=== PATIENT | male | born 1985 | race Hispanic/Latino ===

== ENCOUNTER 2018-05-12 13:20 | Observation (INO) | payer BC, OTHER ==
[2018-05-12] MEDS ORDERED: Nitroglycerin 0.4 MG TAB (25 Tab Bottle) ONE (13:31)
[2018-05-12 13:48] LABS: #Basophils 0.1 thou/uL (0.0-0.2); #Eosinphils 0.2 thou/uL (0.0-0.7); #Monocytes 0.9 thou/uL (0.11-0.59); #Neutrophils 5.6 thou/uL (1.40-6.50); %Eosinophils 1.6 % (0.0-10.0); %Lymphocytes 30.4 % (21.0-51.0); %Monocytes 9.5 % (0.0-10.0); %Neutrophils 57.5 % (42.0-75.0); Hemoglobin 17.7 g/dL (14.0-18.0); Mean Corpuscular HGB CONC 34.7 g/dL (32.0-36.0); Mean Corpuscular Hemoglobin 30.1 pg (27.0-31.0); Mean Corpuscular Volume 86.7 fl (80.0-94.0); Mean Platelet Volume 8.1 fL (7.4-10.4); Platelet Count 214 thou/uL (130-400); RBC Distribution Width 11.5 % (11.5-14.5); Red Blood Cell (RBC) Count 5.88 mill/uL (4.70-6.10); White Blood Cell (WBC) Count 9.7 thou/uL (4.8-10.8)
[2018-05-12] MEDS ORDERED: Acetaminophen 500 MG TAB ONE (13:56)
--- NOTE | 2018-05-12 13:56 | RAD ---
SINGLE VIEW CHEST: Date: 05/12/18 COMPARISON: 01/14/14. HISTORY: Chest pain. FINDINGS: Single view of the chest shows a normal sized cardiomediastinal silhouette. There is no evidence of c onsolidation, mass, or pleural effusion. The bones are unremarkable. IMPRESSION: No evidence of acute cardiopulmonary disease. POS: [facility]
[2018-05-12 14:06] LABS: ALT (SGPT) 81 U/L (8-55); AST (SGOT) 91 U/L (5-34); Albumin 4.5 g/dL (3.5-5.0); Alkaline Phosphatase 72 U/L (40-150); Anion Gap 14 mmol/L (10-20); BUN (Urea Nitrogen) 11 mg/dL (8.9-20.6); Bilirubin, Total 0.8 mg/dL (0.2-1.2); CK (CPK) 296 U/L (30-200); Calc. Creatinine Clearance 0 mL/min (70-130); Calcium 9.7 mg/dL (7.8-10.44); Carbon Dioxide 25 mmol/L (22-29); Chloride 108 mmol/L (98-107); Estimated GFR-MDRD Greater than 90; Globulin 3.1 g/dL (2.4-3.5); Glucose 94 mg/dL (70-105); Protein, Total 7.6 g/dL (6.0-8.3); Sodium 143 mmol/L (136-145)
[2018-05-12 14:07] LABS: Troponin I Less than 0.010 ng/mL (< 0.028)
[2018-05-12] MEDS ORDERED: Nitroglycerin 2% Ointment 1 INCH/1 GM Packet ONE (14:12)
[2018-05-12 16:33] VITALS: BMI 36.3
[2018-05-12] MEDS ORDERED: Nitroglycerin 0.4 MG TAB (25 Tab Bottle) PO PRN (16:54)
--- NOTE | 2018-05-12 16:54 | PDOC.FPRHP ---
- History of Present Illness Chief Complaint: Chest pain History of Present Illness: 33 yo male with pmhx of an [place] (STEMI) in 2012 s/p cath with stent placement, HTN , and HLD, presents with chest pain that started today at 1245 after he ate a pizza slice. He described it as substernal, pressure with radiation to his back , shortness of breath and diaphoresis. Denies n/v/d/c/fever/chills. States that he was seen by Dr. Joy then Dr. Alexandra at [facility]. He had a stress and echo done in September 2017 at [facility] that was "normal." They told him at that time that he was having a panic attack. He also said that 1.5 years ago, he had a cath and the doctor told him a vessel was about 40% clogged. He went to the [email or web address] ER today when he got his chest pain and they gave him nitro (2 pills) and nitro paste with aspirin 324mg, which resolved his chest pain he thinks after about 30 minutes. When we evaluated him, he did not have any chest pain. He still had the nitro patch on. He endorsed a family hx of diabetes. 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 ED Course: 2 nitro tabs, nitro patch, tylenol, and aspirin 325mg - Allergies/Adverse Reactions Allergies Allergy/AdvReac Type Severity Reaction Status Date / Time Penicillins Allergy Severe Anaphylaxis Verified 08/30/13 00:30 - Home Medications Medication Instructions Recorded Confirmed Type Aspirin 81 mg PO DAILY 08/25/13 05/12/18 History Atorvastatin Calcium [Lipitor] 10 mg PO HS 08/25/13 05/12/18 History Labetalol [Normodyne] 100 mg PO DAILY 05/12/18 05/12/18 History Labetalol [Normodyne] 200 mg PO HS 05/12/18 05/12/18 History Lisinopril [Lisinopril] 15 mg PO DAILY 05/12/18 05/12/18 History Spironolactone [Spironolactone] 25 mg PO BID 05/12/18 05/12/18 History Ubidecarenone [Coenzyme Q-10] 100 mg PO BID 05/12/18 05/12/18 History - History PMHx: PSHx: FHx: Social: - Review of Systems General: reports: other (diaphoresis). denies: fever/chills, weight/appetite/ sleep changes ENT: denies: nasal congestion, rhinorrhea Respiratory: reports: shortness of breath. denies: cough, congestion, exercise intolerance Cardiovascular: reports: chest pain. denies: palpitation, edema, paroxysmal nocturnal dyspnea Gastrointestinal: denies: nausea, vomiting, diarrhea Genitourinary: denies: incontinence, dysuria Skin: denies: rashes, lesions, jaundice Musculoskeletal: denies: pain, tenderness, stiffness Neurological: denies: numbness, syncope, seizure Psychological: reports: anxiety. denies: depression - Vital signs BP: 140/85 HR: 88 RR: 18 Tmax: 98.6 Pox: 97%% on RA Wt: 99kg - Physical Exam Constitutional: NAD, awake, alert and oriented HEENT: normocephalic and atraumatic, PERRLA Neck: supple, no LAD, no thyromegaly Heart: RRR, normal S1/S2, no murmurs/rubs/gallops, no edema Lungs: CTAB, no respiratory distress Abdomen: soft, non-tender, bowel sounds present Musculoskeletal: normal structure, normal tone Neurological: no focal deficit, CN II-XII intact Skin: no rash/lesions, good turgor Heme/Lymphatic: no unusual bruising or bleeding, no purpura Psychiatric: normal mood and affect FMR H&P: Results - Labs Result Diagrams: 05/12/18 13:42 05/12/18 13:42 Lab results: WBC 9.7 thou/uL (4.8-10.8) 05/12/18 13:42 Hgb 17.7 g/dL (14.0-18.0) 05/12/18 13:42 Hct 51.0 % (42.0-52.0) 05/12/18 13:42 MCV 86.7 fl (80.0-94.0) 05/12/18 13:42 Plt Count 214 thou/uL (130-400) 05/12/18 13:42 Neutrophils % 57.5 % (42.0-75.0) 05/12/18 13:42 Sodium 143 mmol/L (136-145) 05/12/18 13:42 Potassium 4.0 mmol/L (3.5-5.1) 05/12/18 13:42 Chloride 108 mmol/L (98-107) H 05/12/18 13:42 Carbon Dioxide 25 mmol/L (22-29) 05/12/18 13:42 BUN 11 mg/dL (8.9-20.6) 05/12/18 13:42 Creatinine 0.88 mg/dL (0.7-1.3) 05/12/18 13:42 Glucose 94 mg/dL (70-105) 05/12/18 13:42 Calcium 9.7 mg/dL (7.8-10.44) 05/12/18 13:42 Total Bilirubin 0.8 mg/dL (0.2-1.2) 05/12/18 13:42 AST 91 U/L (5-34) H 05/12/18 13:42 ALT 81 U/L (8-55) H 05/12/18 13:42 Alkaline Phosphatase 72 U/L (40-150) 05/12/18 13:42 Creatine Kinase 296 U/L (30-200) H 05/12/18 13:42 CK-MB (CK-2) 6.0 ng/mL (0-6.6) 05/12/18 13:42 Serum Total Protein 7.6 g/dL (6.0-8.3) 05/12/18 13:42 Albumin 4.5 g/dL (3.5-5.0) 05/12/18 13:42 - EKG Interpretation EKG: no acute ischemic changes NSR - Radiology Interpretation Chest x-ray Status: image reviewed by me, report reviewed by me Additional comment: no acute cardiopulmonary process FMR H&P: A/P - Problem List (1) Chest pain Current Visit: Yes Status: Acute Code(s): R07.9 - CHEST PAIN, UNSPECIFIED (2) HTN (hypertension) Current Visit: Yes Status: Acute Code(s): I10 - ESSENTIAL (PRIMARY) HYPERTENSION (3) HLD (hyperlipidemia) Current Visit: Yes Status: Acute Code(s): E78.5 - HYPERLIPIDEMIA, UNSPECIFIED (4) CAD (coronary artery disease) Current Visit: Yes Status: Acute Code(s): I25.10 - ATHSCL HEART DISEASE OF [place] CORONARY ARTERY W/O ANG PCTRS (5) History of intravascular stent placement Current Visit: Yes Status: Acute Code(s): Z95.828 - PRESENCE OF OTHER VASCULAR IMPLANTS AND GRAFTS (6) Family history of diabetes mellitus Current Visit: Yes Status: Acute Code(s): Z83.3 - FAMILY HISTORY OF DIABETES MELLITUS - Plan 33 yo man with pmhx of [place] s/p cath with stent placement, presents with chest pain, admitted for typical chest pain. Typical Chest Pain- -ddx: ACS, esophageal spasm, anxiety/panic attack -admit to inpatient telemetry -trend troponins and ck-mb -serial EKGs -monitor on telemetry -Hrt score of 4 but prior stress and echo in September 2017. Will request records from [facility]. -consider cards consult in the am -continue asa, statin, devang, and bb tonight, hold bb in am in case of stress test -NPO at midnight incase we decide to order a stress or if cards wants to cath the patient. -Hold BB in the am Transaminitis -ordered right upper quadrant us -no right upper quadrant HTN- -Restart lisinopril and labetalol HLD- -Restart atorvastatin 40mg daily GERD -restart ppi daily DVT prophylaxis- -lovenox GI prophylaxis- -ppi CODE STATUS: Full code FMR H&P: Upper Level - Pertinent history Patient seen 05/12/18 at 1630 33 year old male with PMH STEMI presents for retrosternal chest pain starting today at approximately 1300 after eating lunch. He describes the pain as pressure-like and radiating to his back. He was not sure if it felt like this when he had his STEMI. Pain was associated with diaphoresis and dyspnea and improved with nitro. No worsening with movement. He has not had prior episodes like this or chest pain prior toda. Denies recent exertional dyspnea, orthopnea, leg swelling, jaw pain, nausea. Also denies fever, chills, rhinorrhea, nasal congestion, sore throat, wheezing, cough, abdominal pain, vomiting, diarrhea, rash, jaundice, itching, anxiety, and depression. ED - Seen at [facility] ER by Dr. Rosario. Was treated with sublingual nitro x2, Nitro-Bid, 324 mg aspirin, and Tylenol. Initial cardiac enzymes were negative. - Pertinent findings Temp 98.6 RR 18 HR 88 BP 140/85 O2 sats 97% on RA wt 98.9 kg Physical Exam: General: NAD. Obese. AAOx4 Eyes: EOMI, PERRL, nonicteric ENT: MMM. Oropharynx clear CV: RRR. No murmurs, rubs, or gallops. Pulses full and equal in all 4 extremities. Pain not reproducible with palpation Resp: CTA-B. No wheezing, rales, or rhonchi. Abd: NT, ND, no guarding or rebound Ext: No edema. Equal movements bilaterally Skin: No rash or ulcer. No palpable Neuro: CN II-XII. Psych: Mood and affect appropriate. Judgment and insight intact CXR - No evidence of acute cardiopulmonary processes EKG - No ischemic changes - Plan Date/Time: 05/12/181653 I, Benjie Patino DO, have evaluated this patient and agree with findings/plan as outlined by internal consultant resident. Pertinent changes/additions are listed here. A/P: 33 yo male presents with: 1) Typical Chest Pain - Admit to telemetry. Continue aspirin plus home statin, DEVANG, ARB. Trend cardiac enzymes and EKG. Patient has a history of NJ. HEART score is 4. Check mag. Consider cardiology consult in the morning. Recently had echo at [facility]. Will request records. 2) History of STEMI - Occurred after a surgery in 2012. Plan as listed above. Consider cardiology consult in the morning 3) HTN - Home meds 4) HLD - Home meds 5) GERD - Protonix 6) Headache - Occurred after nitro. Likely side effect of nitro 7) Diet - Heart healthy. NPO at midnight
[2018-05-12 17:13] LABS: Troponin I Less than 0.010 ng/mL (< 0.028)
[2018-05-12 17:25] LABS: Cardiac Risk 4.6 (Less than 4.5)
[2018-05-12 17:46] LABS: Magnesium 2.2 mg/dL (1.6-2.6)
[2018-05-12 19:47] LABS: Hemoglobin A1c 5.1 % (4.0-6.0)
[2018-05-12 20:05] LABS: CKMB 4.2 ng/mL (0-6.6); Troponin I Less than 0.010 ng/mL (< 0.028)
[2018-05-12] MEDS: Spironolactone 25 MG TAB PO SCH (20:24)
[2018-05-12] MEDS: Ubidecarenone 50 MG CAP PO SCH (20:24)
[2018-05-12] MEDS ORDERED: Atorvastatin Calcium 40 MG TAB PO SCH (21:00)
[2018-05-12] MEDS ORDERED: Labetalol 100 MG TAB PO SCH (21:00)
[2018-05-12] MEDS: Nitroglycerin 2% Ointment 1 INCH/1 GM Packet TOP SCH (22:45)
[2018-05-13] MEDS ORDERED: Acetaminophen 325 MG TAB PO PRN (02:03)
[2018-05-13] MEDS: Nitroglycerin 2% Ointment 1 INCH/1 GM Packet TOP SCH (05:29)
[2018-05-13 05:48] LABS: ALT (SGPT) 66 U/L (8-55); AST (SGOT) 41 U/L (5-34); Albumin 4.1 g/dL (3.5-5.0); Alkaline Phosphatase 67 U/L (40-150); Anion Gap 11 mmol/L (10-20); BUN (Urea Nitrogen) 14 mg/dL (8.9-20.6); Band 4 % (5-11); Bilirubin, Total 0.7 mg/dL (0.2-1.2); Calc. Creatinine Clearance 180 mL/min (70-130); Calcium 9.1 mg/dL (7.8-10.44); Carbon Dioxide 24 mmol/L (22-29); Chloride 108 mmol/L (98-107); Eosinophils 2 % (0-10); Estimated GFR-MDRD Greater than 90; Globulin 2.5 g/dL (2.4-3.5); Glucose 98 mg/dL (70-105); Hemoglobin 16.4 g/dL (14.0-18.0); Lymphocytes 21 % (21-51); MDiff Complete? YES; Mean Corpuscular HGB CONC 34.5 g/dL (32.0-36.0); Mean Corpuscular Hemoglobin 30.7 pg (27.0-31.0); Mean Platelet Volume 7.5 fL (7.4-10.4); Monocytes 4 % (0-10); Neutrophil 69 % (42-75); PLT Morphology Comment Appears Adequate; Platelet Count 177 thou/uL (130-400); Protein, Total 6.6 g/dL (6.0-8.3); RBC Distribution Width 11.9 % (11.5-14.5); Red Blood Cell (RBC) Count 5.32 mill/uL (4.70-6.10); Sodium 139 mmol/L (136-145); White Blood Cell (WBC) Count 10.1 thou/uL (4.8-10.8)
[2018-05-13 05:55] LABS: Troponin I Less than 0.010 ng/mL (< 0.028)
[2018-05-13] MEDS: Spironolactone 25 MG TAB PO SCH (08:12)
[2018-05-13] MEDS: Ubidecarenone 50 MG CAP PO SCH (08:12)
--- NOTE | 2018-05-13 08:20 | ULT ---
SONOGRAM RIGHT UPPER QUADRANT: HISTORY: Right upper quadrant pain. FINDINGS: Echogenic stone is apparent at the gallbladder lumen. Nonshadowing sludge is also visible. Gallblad erin is somewhat distended at 9 cm. The patient was reportedly not tender over the gallbladder fossa at the time of the exam. No pericholecystic fluid or gallbladder wall thickening. The common duct i s 0.5 cm. Liver unremarkable without focal mass or intrahepatic biliary dilatation. No free fluid. IMPRESSION: Cholelithiasis. No evidence of acute biliary obstruction. POS: [facility]
--- NOTE | 2018-05-13 08:48 | PDOC.FM ---
- Subjective Subjective: No chest pain this morning. Denies sx. Sitting up in the chair. - Objective MAR Reviewed: Yes Vital Signs & Weight: Vital Signs (12 hours) Temp Pulse Resp BP BP BP Pulse Ox 05/13/18 08:11 141/85 H 05/13/18 08:00 99.0 F 76 18 132/76 99 05/13/18 04:00 97.9 F 87 14 128/73 95 05/13/18 00:00 98.2 F 67 19 118/67 99 Weight Weight 98.928 kg Result Diagrams: 05/13/18 04:34 05/13/18 04:34 Phys Exam - Physical Examination Constitutional: NAD HEENT: PERRLA, moist MMs Respiratory: no wheezing, no rales, no rhonchi, clear to auscultation bilateral Cardiovascular: RRR, no significant murmur Gastrointestinal: soft, non-tender, no distention Musculoskeletal: no edema, pulses present Neurological: non-focal, normal sensation Psychiatric: normal affect, A&O x 3 Deviation from normal: neurofibromas pea size on back Dx/Plan (1) Chest pain Code(s): R07.9 - CHEST PAIN, UNSPECIFIED Status: Acute (2) HTN (hypertension) Code(s): I10 - ESSENTIAL (PRIMARY) HYPERTENSION Status: Acute (3) HLD (hyperlipidemia) Code(s): E78.5 - HYPERLIPIDEMIA, UNSPECIFIED Status: Acute (4) CAD (coronary artery disease) Code(s): I25.10 - ATHSCL HEART DISEASE OF [place] CORONARY ARTERY W/O ANG PCTRS Status: Acute (5) History of intravascular stent placement Code(s): Z95.828 - PRESENCE OF OTHER VASCULAR IMPLANTS AND GRAFTS Status: Acute (6) Family history of diabetes mellitus Code(s): Z83.3 - FAMILY HISTORY OF DIABETES MELLITUS Status: Acute - Plan Plan: 33 yo man with pmhx of [place] s/p cath with stent placement, presents with chest pain, admitted for typical chest pain. Typical Chest Pain- -ddx: ACS, esophageal spasm, anxiety/panic attack -Hrt score of 4 -awaiting records from [facility] -trops negative overnight and no ekg changes -will consult cardiology since pt has a hx of [place] and typical chest pain to further assess if we should stress Transaminitis -ordered right upper quadrant us -no right upper quadrant HTN- -Restart lisinopril and labetalol HLD- -Restart atorvastatin 40mg daily GERD -restart ppi daily DVT prophylaxis- -lovenox GI prophylaxis- -ppi CODE STATUS: Full code
[2018-05-13] MEDS ORDERED: Aspirin 325 MG TAB PO SCH (09:00)
[2018-05-13] MEDS ORDERED: Lisinopril 10 MG TAB PO SCH (09:00)
[2018-05-13] MEDS ORDERED: Clopidogrel Bisulfate 75 MG TAB PO SCH (09:00)
[2018-05-13] MEDS ORDERED: Enoxaparin Sodium 40 MG/0.4 ML SYRINGE SC SCH (09:00)
--- NOTE | 2018-05-13 09:56 | HP ---
I have examined the patient. I have discussed the case with Dr. Benjie Patino and agreed with his assessment and plan. Mr. Rios is a pleasant 33-year-old male with known coronary artery disease status post splinting in 2012. He developed some epigastric and retrosternal abdominal or chest discomfort after eating a pizza for lunch on 05/12/2018. He presented to a local [facility] ER in [facility]. Although his initial EKG and troponins were negative, he was admitted for further observatio n and evaluation. PHYSICAL EXAMINATION: GENERAL: He is a slightly obese male in no distress. He is awake and alert. He is current ly not having any chest or abdominal discomfort. VITAL SIGNS: His blood pressure is 128/73, his respiration is 14, oxygen saturation on room air is 9 5%. He is afebrile. He has pulse rate of 87 that is regular. HEAD: Normocephalic. NECK: Supple, no JVD. CARDIAC: PMI is in the fifth intercostal space midclavicular line. No gallop or murmur noted. LUNGS: Clear. No rales, rhonchi or wheezes. ABDOMEN: He does have slight epigastric discomfort. No right upper quadrant discomfort. No guardin g, rebound or rigidity. EXTREMITIES: No edema. NEUROLOGIC: No focal deficits. LABORATORY DATA AND IMAGING DATA: CBC: White count is 9,700, hemoglobin 17.7, hematocrit 51 with an MCV of 86. Chemistries: Sodium is 139, potassium is 4, chloride 108, bicarbonate is 24, BUN 14, cr eatinine 0.8. He does have elevated liver enzymes with an AST of 41 and ALT of 66. Troponins x2 are less than 0.010. His EKG does not show any acute ischemic changes. ASSESSMENT: Chest and abdominal discomfort in a patient with known coronary artery disease. PLAN: Admit, trend troponins, consult Cardiology, consider other etiologies of his discomfort.
--- NOTE | 2018-05-13 11:30 | ADD-PRG ---
DATE OF SERVICE: 05/13/2018 ADDENDUM This is an addendum to the note of Dr. Tamia Murphy. Mr. Rios is resting quietly in bed in no distress. He has not had any further episodes of signi ficant epigastric or chest pain. He has been scheduled for a stress Myoview at the suggestion of Car diology. We will proceed based on the results. He was also found to have gallstone, although no sig ns and symptoms of cholecystitis. He has; however, in the past had some epigastric discomfort which could be related to gallbladder disease or to his GERD. We will proceed with an outpatient workup up on discharge to include at least a HIDA scan and possible surgical consultation.
[2018-05-13 15:21] LABS: Syphilis Antibody Nonreactive (Nonreactive); Syphilis Antibody Index 0.06 S/CO (<1.00 Non-Reactive)
[2018-05-13] MEDS ORDERED: ADENOSINE 60 MG/20 ML VIAL ONE (15:29)
--- NOTE | 2018-05-13 15:33 | NM ---
CARDIAC SPECT: CLINICAL HISTORY: 33-year-old male with chest pain, coronary artery disease, stent placement, hypertension, an d dyslipidemia. TECHNIQUE: A myocardial perfusion scan was performed using the single isotope one day protocol with technetium-9 9m sestamibi. 9 mCi were injected intravenously for the rest exam followed by 28 mCi for the stress s tudy. Pharmacologic stress with Adenosine was monitored and interpreted by Dr. More. FINDINGS: Homogeneous tracer distribution is seen in the myocardial segments on stress and rest images without fixed or reversible defects. GATED SPECT LVEF: 74%. WALL MOTION EXAM: Normal. IMPRESSION: Normal myocardial perfusion scan. POS: [facility]
[2018-05-13 15:36] LABS: HBCM Index 0.07 S/CO (0-0.79); HBSAg Index 0.15 S/CO (0-0.99); HIV (1/2) Antibody/Antigen Non-Reactive (NonReactive); HIV 1/2 INDEX 0.11 S/CO (<1.00); Hep A IgM AB Non-Reactive (NonReactive); Hep A IgM S/CO 0.07 S/CO (0-0.79); Hep B Surf AB Non-Reactive (NonReactive); Hep B Surf Ag Non-Reactive S/CO (NonReactive); Hep C IgG Ab Non-Reactive (NonReactive); Hep C Index 0.06 S/CO (0-0.79); Hepatitis B Core IGM Abs Non-Reactive (NonReactive)
[2018-05-13 17:22] VITALS: BP 136/70; TEMP 98.8
--- NOTE | 2018-05-16 08:57 | DIS-2 ---
DATE OF ADMISSION: 05/12/2018 DATE OF DISCHARGE: 05/13/2018. RESIDENT: Muna Ward MD ATTENDING PHYSICIAN: Ari Pizano MD PRIMARY DIAGNOSES: 1. Typical chest pain. 2. Transaminitis. 3. Hypertension. 4. Hyperlipidemia. 5. Gastroesophageal reflux disease. DISCHARGE MEDICATIONS: 1. Pantoprazole 40 mg oral twice daily. 2. Aspirin 81 mg oral daily. 3. Atorvastatin 10 mg oral at bedtime. 4. Lisinopril 50 mg oral daily. 5. Labetalol 10 mg oral daily. 6. Labetalol 20 mg oral at bedtime. 7. Spironolactone 25 mg oral twice daily. 8. Coenzyme Q10 of 100 mg oral twice daily. IMAGIN. Chest x-ray. Impression: No evidence of acute cardiopulmonary disease. 2. Nuclear stress test, normal myocardial perfusion scan, EF 74% without fixed or reversible defects. 3. Abdominal ultrasound, cholelithiasis, no evidence of acute biliary obstruction. CONSULTS: None. HISTORY OF PRESENT ILLNESS AND HOSPITAL COURSE: This is a 33-year-old male with past medical history of an [place] (STEMI in 2012), status post catheterization with stent placement, hypertension, and hyperlipidemia who presents with chest pain that started today at 12:45 after he ate a pizza. He described it as substernal pressure with radiation to his back, shortness of breath and diaphoresis. Denied nausea, vomiting, diarrhea, constipation, fevers or chills. States that he was seen by Dr. Maharaj and Dr. Alexandra at [facility]. He had a stress test and echo done in 09/2017 at [facility] that was (normal). They told him at that time that he was having a panic attack. He also said that 1-1/2 years ago, he had a catheterization that the doctor told him he had a vessel that was about 40% clogged. He went to [facility] ER today when he got his chest pain and they gave him 2 nitro pills nitro paste with aspirin 324 mg which resolved his chest pain he thinks after about 30 minutes. When we reevaluated him he did not have any chest pain. He still had the nitropatch on, he endorses a family history of diabetes. 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 In the ER, he was given 2 nitro tabs, nitropatch, Tylenol and aspirin 325 mg. He has a past medical history of hypertension, hyperlipidemia, anemia, CAD status post stent placed in 2012, neurofibromatosis and GERD. He denies smoking, alcohol or drug use. Father has type 2 diabetes. His vitals on admission were within normal limits. Heart exam showed a regular rate and rhythm. Normal S1 and S2. No murmurs, rubs or gallops. No edema. Chest pain , not reproducible to palpation. Lungs were clear to auscultation. No respiratory distress. In regard to his neurologic exam, he was alert and oriented x3. His CBC on admission was within normal limits. His CMP showed hyperchloremia 108. His AST and ALT are mildly elevated at 91 and 81. His alk phos was normal at 72. His CK was elevated at 296, CK-MB was normal at 6.0. His first troponin was less than 0.010, those were trended, which were all negative. A hepatitis panel was ordered which showed hep A was nonreactive, hep B surface antigen was nonreactive as well as B surface antibody, hepatitis C antibody was nonreactive , HIV was nonreactive. Syphilis was nonreactive. A TSH was also ordered and was 1.2, normal. Lipids were ordered as well showed triglycerides of 241, he was admitted for typical chest pain. Differential to include acute coronary syndrome, esophageal spasm, anxiety or panic attack. He was admitted to inpatient telemetry. His troponins were trended as stated above and were negative. CK-MB was normal. His initial EKG showed no acute ischemic changes, normal sinus rhythm. Serial EKGs were performed showing the same thing. He had a heart score of 4, but a prior stress echo in 09/2017. Records were requested from [facility]. We continued his aspirin, statin and DEVANG. His beta-juan was held. He was made n.p.o. at midnight and a stress test was ordered for in the morning. In regard to transaminitis, a right upper quadrant ultrasound was ordered which showed cholelithiasis, but no evidence of obstruction. His liver enzymes were trended, which downtrended. In regard to his hypertension, he was restarted on lisinopril and labetalol. In regard to his hyperlipidemia, he was restarted on atorvastatin 40 daily. In regard to his GERD, he was restarted on his PPI daily. He had a stress test the following day, which showed no signs of reversible ischemia. He was discharged later on that day. DISPOSITION: Stable. Due to his stress test being normal is likely that due to his chronic history of GERD that this pain was relating to his GERD versus an esophageal spasm which also was relieved with nitro. This could also be an anxiety or panic attack as the patient did endorse work related stress. Further workup was recommended in the outpatient setting. DISCHARGE INSTRUCTIONS: LOCATION: Discharged to home. FOLLOWUP: Followup with primary care physician and Cardiology within 1-2 weeks. DIET: Heart healthy. ACTIVITY: As tolerated. JAMSHID
--- NOTE | 2018-05-27 10:04 | STRESS ---
Acquisition Time: 2018-05-13 12:18:49 Total Exercise Time: 00:04:00 Test Indications: CHEST PAIN Medications: Protocol: ADENOSINE Max HR: 120 BPM 64% of Pred: 185 BPM Max BP: 140/072 mmHG Max Work Load: 1.0 METS RESTING ECG: NORMAL SINUS RHYTHM AT 72 BPM WITH NON-SPECIFIC T-WAVE CHANGES SYMPTOMS: CHEST PAIN AND SHORTNESS OF BREATH NORMAL BP RESPONSE ECTOPY: NONE ECG STRESS: NO SIGNIFICANT CHANGES INTERPRETATION: AWAIT NUCLEAR IMAGES FOR DEFINITIVE DIAGNOSIS Confirmed by DAVIS DIAZ ([id number]), editor at large MALINDA PINEDA ([id number]) on 05/27/2018 10:04:35 AM Referred By: MD Tanner HIGH Confirmed By:DAVIS DIAZ
== END 2018-05-13 17:36 | disposition home or self-care (01) ==
LOC: SCSER 13:20 → 2NO 14:57 → INTOOBSV 14:57
PROVIDERS: ADMIT Family Medicine; ATTEND Family Medicine
DX: R07.89 Other chest pain (principal); I10 Essential (primary) hypertension; E78.5 Hyperlipidemia, unspecified; K21.9 Gastro-esophageal reflux disease without esophagitis; I25.10 Atherosclerotic heart disease of native coronary artery without angina pectoris; Z79.82 Long term (current) use of aspirin; Z79.899 Other long term (current) drug therapy; Z83.3 Family history of diabetes mellitus; Z95.828 Presence of other vascular implants and grafts; Z88.0 Allergy status to penicillin
CPT/HCPCS: 36415; 71045; 76705; 78452; 80053; 80061; 82553; 83036; 83735; 84100; 84443; 84484; 85007; 85025; 85027; 86705; 86706; 86709; 86780; 86803; 87340; 87350; 87389; 93005; 93010; 93017; 96372; A9500; G0378; J0153; J1650

== ENCOUNTER 2022-12-08 19:58 | Observation (INO) | payer OTHER ==
[2022-12-08 20:44] LABS: #Basophils 0.1 thou/uL (0.0-0.2); #Eosinphils 0.1 thou/uL (0.0-0.7); #Lymphocytes 2.4 thou/uL (1.20-3.40); #Neutrophils 5.7 thou/uL (1.40-6.50); %Basophils 0.5 % (0.0-1.0); %Eosinophils 1.6 % (0.0-10.0); %Lymphocytes 25.9 % (21.0-51.0); %Monocytes 10.6 % (0.0-10.0); %Neutrophils 61.4 % (42.0-75.0); Hemoglobin 18.3 g/dL (14.0-18.0); Mean Corpuscular HGB CONC 32.3 g/dL (32.0-36.0); Mean Corpuscular Hemoglobin 29.2 pg (27.0-31.0); Mean Corpuscular Volume 90.5 fl (78.0-98.0); Mean Platelet Volume 8.3 fL (7.4-10.4); Platelet Count 194 10x3/uL (130-400); RBC Distribution Width 12.3 % (11.5-14.5); Red Blood Cell (RBC) Count 6.27 mill/uL (4.70-6.10); White Blood Cell (WBC) Count 9.3 10x3/uL (4.8-10.8)
[2022-12-08 20:57] LABS: ALT (SGPT) 36 U/L (8-55); AST (SGOT) 25 U/L (5-34); Albumin 4.6 g/dL (3.5-5.0); Alkaline Phosphatase 76 U/L (40-110); Anion Gap 13 mmol/L (10-20); BUN (Urea Nitrogen) 13 mg/dL (8.9-20.6); Bilirubin, Total 0.4 mg/dL (0.2-1.2); Calc. Creatinine Clearance 0 mL/min (70-130); Calcium 9.7 mg/dL (7.8-10.44); Carbon Dioxide 25 mmol/L (22-29); Chloride 106 mmol/L (98-107); Estimated GFR 97; Globulin 2.9 g/dL (2.4-3.5); Glucose 110 mg/dL (70-105); Potassium 4.5 mmol/L (3.5-5.1); Protein, Total 7.5 g/dL (6.0-8.3); Sodium 139 mmol/L (136-145)
[2022-12-08] MEDS ORDERED: Aspirin Chewable 81 MG TAB ONE (22:18)
[2022-12-09] MEDS ORDERED: Lorazepam 0.5 MG TAB PO SCH (05:00)
[2022-12-09] MEDS ORDERED: Lorazepam 1 MG TAB ONE (05:09)
[2022-12-09 06:22] LABS: #Basophils 0.1 thou/uL (0.0-0.2); #Eosinphils 0.1 thou/uL (0.0-0.7); #Lymphocytes 2.4 thou/uL (1.20-3.40); #Monocytes 1.1 thou/uL (0.11-0.59); #Neutrophils 5.9 thou/uL (1.40-6.50); %Basophils 0.9 % (0.0-1.0); %Eosinophils 1.4 % (0.0-10.0); %Lymphocytes 24.9 % (21.0-51.0); %Monocytes 11.1 % (0.0-10.0); %Neutrophils 61.6 % (42.0-75.0); Hemoglobin 18.3 g/dL (14.0-18.0); Mean Corpuscular HGB CONC 34.1 g/dL (32.0-36.0); Mean Corpuscular Hemoglobin 30.8 pg (27.0-31.0); Mean Corpuscular Volume 90.6 fl (78.0-98.0); Mean Platelet Volume 8.1 fL (7.4-10.4); Platelet Count 166 10x3/uL (130-400); RBC Distribution Width 12.4 % (11.5-14.5); Red Blood Cell (RBC) Count 5.95 mill/uL (4.70-6.10); White Blood Cell (WBC) Count 9.6 10x3/uL (4.8-10.8)
[2022-12-09 06:55] LABS: Anion Gap 10 mmol/L (10-20); BUN (Urea Nitrogen) 11 mg/dL (8.9-20.6); Calc. Creatinine Clearance 0 mL/min (70-130); Calcium 9.6 mg/dL (7.8-10.44); Carbon Dioxide 28 mmol/L (22-29); Chloride 104 mmol/L (98-107); Estimated GFR 95; Glucose 94 mg/dL (70-105); Phosphorus 3.5 mg/dL (2.3-4.7); Potassium 4.4 mmol/L (3.5-5.1); Sodium 138 mmol/L (136-145)
[2022-12-09] MEDS ORDERED: Lisinopril 10 MG TAB ONE (10:09)
[2022-12-09] MEDS ORDERED: Pantoprazole 40 MG VIAL ONE (10:09)
[2022-12-09] MEDS: Lisinopril 10 MG TAB PO SCH (10:14)
[2022-12-09] MEDS: Spironolactone 25 MG TAB PO SCH ×2 (10:19→21:48)
[2022-12-09] MEDS: Pantoprazole 40 MG VIAL IVP SCH ×2 (10:19→21:48)
[2022-12-09] MEDS ORDERED: Labetalol HCl 100 MG TAB ONE (11:04)
[2022-12-09] MEDS: Labetalol HCl 100 MG TAB PO SCH (11:06)
[2022-12-09 14:02] VITALS: BMI 36.7
[2022-12-09] MEDS ORDERED: Atorvastatin Calcium 10 MG TAB PO SCH (21:00)
[2022-12-09] MEDS ORDERED: Labetalol HCl 100 MG TAB PO SCH (21:00)
[2022-12-09] MEDS ORDERED: Rosuvastatin 20 MG TAB PO SCH (21:00)
[2022-12-10 06:24] LABS: Troponin I 0.012 ng/mL (< 0.028)
[2022-12-10] MEDS: Lisinopril 10 MG TAB PO SCH (08:54)
[2022-12-10] MEDS: Spironolactone 25 MG TAB PO SCH (08:54)
[2022-12-10] MEDS: Labetalol HCl 100 MG TAB PO SCH (08:54)
[2022-12-10] MEDS: Pantoprazole 40 MG VIAL IVP SCH (08:55)
[2022-12-10 12:10] VITALS: BP 121/70; TEMP 98.3
== END 2022-12-10 13:55 | disposition home or self-care (01) ==
LOC: SUATTDRO 19:58 → ERS 19:58 → ERHOLD 23:47 → 2SW 12-09 13:45
PROVIDERS: ADMIT Internal Medicine; ATTEND Internal Medicine
DX: I25.119 Atherosclerotic heart disease of native coronary artery with unspecified angina pectoris (principal); R06.09 Other forms of dyspnea; I25.2 Old myocardial infarction; K21.9 Gastro-esophageal reflux disease without esophagitis; I10 Essential (primary) hypertension; E78.00 Pure hypercholesterolemia, unspecified; Z87.11 Personal history of peptic ulcer disease; Z79.82 Long term (current) use of aspirin; Z79.899 Other long term (current) drug therapy; Z88.0 Allergy status to penicillin; Z95.5 Presence of coronary angioplasty implant and graft; Z20.822 Contact with and (suspected) exposure to COVID-19
CPT/HCPCS: 36415; 71045; 80048; 80053; 80061; 83735; 83880; 84100; 84484; 85025; 93005; 96372; 96374; 96376; C9113; G0378; J1650; U0003; U0005